=== PATIENT | female | born 1975 | race Two or more races ===

== ENCOUNTER 2021-02-14 23:48 | Emergency (ER) | payer OTHER ==
[~2021-02-14] VITALS: Ht 160 cm; Wt 95.3 kg
[2021-02-15] MEDS ORDERED: KETO10TA2 PO (03:16)
== END 2021-02-15 03:47 | disposition home or self-care (01) ==
LOC: ER 23:48
DX: S40.012A Contusion of left shoulder, initial encounter (principal); S20.213A Contusion of bilateral front wall of thorax, initial encounter; S70.02XA Contusion of left hip, initial encounter; V49.9XXA Car occupant (driver) (passenger) injured in unspecified traffic accident, initial encounter; Y93.89 Activity, other specified; Y92.488 Other paved roadways as the place of occurrence of the external cause; Y99.8 Other external cause status